=== PATIENT | female | born 1970 | race Caucasian/White ===

== ENCOUNTER 2017-12-13 06:59 | Day surgery (SDC) | payer MEDICARE ==
[~2017-12-13] VITALS: Ht 157.5 cm; Wt 66.4 kg
[2017-12-13] MEDS ORDERED: IOHEXOL 300 MG/ML 50 ML BTL (for RAD DIAG) IT ONE (07:00)
[2017-12-13 07:25] VITALS: BP 154/114; PULSE 86; RESP 20; TEMP 97.9; O2SAT 97
[2017-12-13] MEDS ORDERED: GABA600T PO (07:49)
[2017-12-13] MEDS ORDERED: TIZA4CAP3 PO (07:49)
[2017-12-13] MEDS ORDERED: BENA25CA4 PO (07:50)
[2017-12-13 08:09] LABS: AUTOMATED NEUTROPHIL # 5.6 TH/MM3 (1.8-7.7); BASOPHIL # 0.1 TH/MM3 (0-0.2); BASOPHIL % 1.1 % (0.0-2.0); EOSINOPHIL # 0.2 TH/MM3 (0-0.4); EOSINOPHIL % 1.7 % (0.0-4.0); HEMATOCRIT 44.1 % (35.0-46.0); HEMOGLOBIN 15.2 GM/DL (11.6-15.3); LYMPH % 33.6 % (9.0-44.0); LYMPHOCYTE # 3.4 TH/MM3 (1.0-4.8); MEAN CELL VOLUME 83.1 FL (80.0-100.0); MEAN CORPUSCULAR HEMOGLOBIN 28.6 PG (27.0-34.0); MEAN CORPUSCULAR HGB CONC 34.4 % (32.0-36.0); MEAN PLATELET VOLUME 7.7 FL (7.0-11.0); MONO % 8.6 % (0.0-8.0); MONOCYTE # 0.9 TH/MM3 (0-0.9); PLATELET COUNT 487 TH/MM3 (150-450); RED BLOOD COUNT 5.31 MIL/MM3 (4.00-5.30); RED CELL DISTRIBUTION WIDTH 20.4 % (11.6-17.2); WHITE BLOOD COUNT 10.1 TH/MM3 (4.0-11.0)
[2017-12-13] MEDS ORDERED: DIAZEPAM 5 MG TAB PO SCH (08:15)
[2017-12-13 08:16] LABS: BICARBONATE 22.8 MEQ/L (21.0-32.0); CALCIUM 9.5 MG/DL (8.5-10.1); CREATININE 0.94 MG/DL (0.50-1.00)
[2017-12-13 08:47] LABS: OVALOCYTES 1+ (NORMAL)
[2017-12-13] MEDS ORDERED: LACTATED RINGER'S 1000 ML INJ 1,000 ML IV SCH (09:00)
--- NOTE | 2017-12-13 09:13 | PD.RAD ---
Post Procedure Progress Note Pre Procedure Diagnosis: (1) Neck pain Post Procedure Diagnosis: (1) Neck pain Procedure Date: Dec 13, 2017 Supervising Radiologist: Donn Lacey Proceduralist/Assist: Flores Bazan, RT(R)(CV), RT Robbi(R) Anesthesia: Local Plan of Activity Patient to Unit: [facility] Patient Condition: Good See PACS Report for procedural detail/treatment Spinal Procedure L2-L3 Fluid Description: Donn Sal MD Dec 13, 2017 09:13
[2017-12-13] MEDS ORDERED: oxyCODONE/ACETAMINOPHEN 5 MG/325 MG TAB PO PRN (09:15)
[2017-12-13] MEDS ORDERED: ACETAMINOPHEN 325 MG TAB PO PRN (09:15)
[2017-12-13] MEDS ORDERED: ONDANSETRON HCL 4 MG/2 ML VIAL IV PUSH PRN (09:15)
--- NOTE | 2017-12-13 09:40 | RADRPT ---
EXAM DATE/TIME: 12/13/2017 08:40 [facility] COMPARISON: No previous studies available for comparison. INDICATIONS : Patient with history of cervical radiculopathy in need of myelogram. MEDICAL HISTORY : Right shoulder arthritis, Chronic low back pain, Left leg nerve damage SURGICAL HISTORY : Spinal cord stimulator, Spinal fusion, Spinal discectomy ENCOUNTER: Initial ACUITY: 4-6 months PAIN SCORE: 7/10 LOCATION: Right arm LUMBAR PUNCTURE TIME: 0902 hours FLUORO TIME: 1.5 minutes IMAGE SERIES: 4 CONTRAST: 13 cc Omnipaque (iohexol) 300 ACCESS LEVEL: L2-3 PROCEDURE : 1. Fluoroscopic guided lumbar puncture. 2. Instillation of intrathecal contrast. 3. Cervical myelogram. The risks, benefits and alternatives to the procedure were explained and verbal and written consent w as obtained. The site was prepped in sterile fashion. Full sterile technique was used, including ca p, mask, sterile gloves and gown and a large sterile sheet. Hand hygiene and 2% chlorhexidine and/or betadine/alcohol prep was utilized per protocol for cutaneous antisepsis. The skin and subcutaneous tissues were infiltrated with local anesthetic solution. With fluoroscopic guidance the lumbar thecal sac was punctured at level above and a diagnostic quanti ty of contrast is present in the subarachnoid space. Under fluoroscopic guidance contrast was moved t o the cervical region. The patient tolerated procedure well and there were no complications. CT scan is to be performed for further evaluation. The images demonstrate no spinal canal stenosis. Nerve root exit zones are clear. CONCLUSION: Uncomplicated cervical myelogram as above. CT scan is to be performed for further evaluation. Donn Lacey MD on December 13, 2017 at 9:36 Board Certified Radiologist. This report was verified electronically.
[2017-12-13 09:50] VITALS: BP 131/101; PULSE 76; RESP 20; TEMP 97.4; O2SAT 97
--- NOTE | 2017-12-13 10:48 | RADRPT ---
EXAM DATE/TIME: 12/13/2017 09:35 [facility] COMPARISON: No previous studies available for comparison. INDICATIONS : Post myelogram. Neck pain. Numbness in 2nd and 3rd digits on right hand. RADIATION DOSE: 21.30 CTDIvol (mGy) CT of thecervical spine was performed post myelogram. MEDICAL HISTORY : None SURGICAL HISTORY : Fusion, lumbar. Spinal stimulator. ENCOUNTER: Initial ACUITY: 1 month PAIN SCALE: 6/10 LOCATION: neck TECHNIQUE: Volumetric scanning of the cervical spine was performed. Multiplanar reconstructions in the sagittal, coronal and oblique axial planes were performed. Using automated exposure control and adjustment o f the mA and/or kV according to patient size, radiation dose was kept as low as reasonably achievable to obtain optimal diagnostic quality images. DICOM format image data is available electronically f or review and comparison. FINDINGS: There is excellent contrast opacification of the cervical subarachnoid spaces following prior injecti on of myelographic contrast. The cervical spine alignment is normal. There is no evidence of fracture or destructive change. No selina ny canal or foraminal compromise is identified. There is a broad undulating dorsal disc protrusion at C6-7 producing severe asymmetrically right-side d lateral recess and foraminal effacement with mild compromise on the contralateral left side. Mild d egree of concentric canal stenosis. Other interspace levels are unremarkable CONCLUSION: Moderate broad undulating dorsal disc protrusion at C6-7 as described above. Other levels are satisfa ctory in appearance. Festus Arango MD on December 13, 2017 at 10:41 Board Certified Radiologist. This report was verified electronically.
[2017-12-13 13:00] VITALS: BP 138/98; PULSE 76; RESP 20; TEMP 97.4; O2SAT 97
== END 2017-12-13 13:00 | disposition home or self-care (01) ==
LOC: HROP 06:59 → EDSEX 07:00 → HRIP 07:00 → HROP 13:00
PROVIDERS: ATTEND Orthopaedic Surgery Orthopaedic Surgery of the Spine
DX: M54.12 Radiculopathy, cervical region (principal); R20.0 Anesthesia of skin; M54.2 Cervicalgia; Z01.818 Encounter for other preprocedural examination
CPT/HCPCS: 62302; 72125; 80048; 85025; 85610; 85730; J7120; Q9967

== ENCOUNTER 2017-12-22 05:29 | Observation (INO) | payer MEDICARE ==
[~2017-12-22] VITALS: Ht 157.5 cm; Wt 70.1 kg
[~2017-12-22 05:29] MED LIST: BENA25CA4 PO; FERR325T98 PO; GABA600T PO; TIZA4CAP3 PO
[2017-12-22] MEDS ORDERED: SODIUM CHLORID 0.9% 500 ML IV PRN (06:00)
[2017-12-22] MEDS ORDERED: ceFAZolin 2 GM PREMIX 50 ML IV SCH (06:00)
[2017-12-22] MEDS ORDERED: LACTATED RINGER'S 1000 ML IV PRN (06:00)
[2017-12-22] MEDS ORDERED: INSULIN HUMAN REGULAR 1,000 UNITS/10 ML VIAL SQ PRN (06:00)
[2017-12-22] MEDS ORDERED: POVIDONE IODINE 5% (ANTISEPSIS KIT) 4 APPLICATIONS EACH NARE PRN (06:00)
[2017-12-22] MEDS ORDERED: VANCOMYCIN 1000 MG/NS 250 ML (for <70 kg) IV SCH ×2 (06:00)
[2017-12-22] MEDS ORDERED: CHLORHEXIDINE GLUCONATE 4% SOLN 120 ML BTL TOPICAL SCH (06:00)
[2017-12-22] MEDS ORDERED: METOPROLOL TARTRATE 25 MG TAB PO PRN (06:00)
[2017-12-22] MEDS ORDERED: CHLORHEXIDINE GLUCONATE 2 % 1 PACK (2 CLOTHS) TOPICAL PRN (06:00)
[2017-12-22] MEDS ORDERED: SODIUM CHLORIDE 0.9% 20 ML VIAL ONE (07:01)
[2017-12-22] MEDS ORDERED: BUPIVACAINE/EPINEPHRINE 0.25% 50 ML VIAL ONE (07:01)
[2017-12-22] MEDS ORDERED: GENTAMICIN SULFATE 80 MG/2 ML VIAL ONE (07:02)
[2017-12-22] MEDS ORDERED: BETAMETHASONE SOD PHOS/ACETATE SUSP 30 MG/5 ML VIAL ONE (09:42)
[2017-12-22] MEDS ORDERED: ACETAMINOPHEN 1000 MG/100 ML 100 ML IV ONE (10:07)
[2017-12-22] MEDS ORDERED: KETAMINE HCL 500 MG/5 ML VIAL ONE (10:07)
[2017-12-22] MEDS ORDERED: PROPOFOL 500 MG/50 ML INJ 50 ML ONE (10:07)
[2017-12-22] MEDS ORDERED: PROPOFOL 500 MG/50 ML INJ 100 ML ONE (10:08)
[2017-12-22] MEDS ORDERED: ONDANSETRON HCL 4 MG/2 ML VIAL IV ONE (12:00)
[2017-12-22] MEDS ORDERED: PHENYLEPH/NS 1000 MCG/10 ML SYR IV ONE (12:00)
[2017-12-22] MEDS ORDERED: PROPOFOL 200 MG/20 ML AMP IV ONE (12:00)
[2017-12-22] MEDS ORDERED: SUCCINYLCHOLINE CHLORIDE 200 MG/10 ML VIAL IV ONE (12:00)
[2017-12-22] MEDS ORDERED: DEXAMETHASONE SOD PHOS 4 MG/ML VIAL IV ONE (12:00)
[2017-12-22] MEDS ORDERED: SODIUM CHLORIDE 0.9% 20 ML VIAL IV ONE (12:00)
[2017-12-22] MEDS ORDERED: NORMOSOL R INJ 1,000 ML IV ONE (12:00)
[2017-12-22] MEDS ORDERED: ePHEDrine/NS 25 MG/5 ML SYRINGE IV ONE (12:00)
[2017-12-22] MEDS: LACTATED RINGER'S 1000 ML INJ 1,000 ML IV SCH (13:28)
[2017-12-22] MEDS ORDERED: MORPHINE SULFATE 4 MG/ML INJ IV PUSH PRN (13:30)
[2017-12-22] MEDS ORDERED: ACETAMINOPHEN/HYDROcodone 325 MG/7.5 MG TAB PO PRN (13:30)
[2017-12-22] MEDS ORDERED: BISACODYL 10 MG SUPP RECTAL PRN (13:30)
[2017-12-22] MEDS ORDERED: Post-op Orders (for Pharmacy) XX ONE (13:30)
[2017-12-22] MEDS ORDERED: ONDANSETRON HCL 4 MG/2 ML VIAL IV PUSH PRN (13:30)
--- NOTE | 2017-12-22 13:34 | PD.OP ---
cc: Jose Ashley. Operative Report Date of Surgery: Dec 22, 2017 Preoperative Diagnosis: Herniated nucleus pulposus C6 7, right, extruded. Right cervical radiculopathy. Adhesive capsulitis, right shoulder Postoperative Diagnosis: Same Procedure: Manipulation of right shoulder under anesthesia. Anterior discectomy with decompression and bilateral foraminotomies with resection herniated nucleus pulposus, C6 7. Total disc replacement, C6 7 Anesthesia: Gen. Surgeon: Jose Ashley Loft Patternmaker(s): REAGAN Finley Operation and Findings: EBL: 50 cc INDICATIONS: Patient is a 47-year-old female with severe right arm pain and weakness. Studies shows evidence of a large extruded disc herniation to the right at C6 7. She manifests with a hard C7 radiculopathy. The patient and so painful she developed an adhesive capsulitis right shoulder. She presents for surgical treatment. NOTE: Jodi Finley PA-C was present for the entire surgical procedure as my certified first assistant. In my medical opinion her skill and care was necessary for proper management of this patient PROCEDURE: The patient was brought to the operating room and anesthetized in the supine position. This patient was positioned supine on the radiolucent table. All pressure points were protected in the anterior cervical spine and iliac crest was scrubbed with alcohol followed by Hibiclens followed by ChloraPrep. A timeout was done and antibiotics were given within 1 hour time window. Lateral radiographic images were used identifying the proper level. A right anterior incision was made in line with skin creases. The platysma was opened in line with the incision. Deep dissection continued in the interval between the carotid sheath and the esophagus. The longus Shruthi muscles were lifted on both sides and retractors were positioned allowing good exposure. Lateral radiographic images were used to identify the proper level. [place] style interosseous pins were placed at C6 and C7 allowing exposure to that level. The microscope was rolled into the field. A total discectomy was accomplished and posterior osteophytes were removed. Very carefully, fluoroscopy was used in the AP and lateral planes to ensure that the pins were at midline at that the pins were parallel to the endplates at that level. Using the LDR system, trials were used to gauge the width and the depth of the intended implant. It was elected to proceed forward with 17 mm wide, 15 mm deep and 5 mm thick total disc replacement. A trial was utilized. Alignment and position was very satisfactory. The endplates were prepared very carefully. On the back table the total disc replacement was opened. It was then placed in proper orientation and alignment. Slight adjustments were made. We then compressed over the disc replacement and intraoperative x-rays were obtained after the [place] pins were removed. Alignment and position was felt be very satisfactory. No complication was appreciated. The wound was irrigated copiously. Deep retractors were removed. There was no bleeding that was encountered. The platysma was closed. Subcutaneous tissues approximated with interrupted 3-0 Vicryl suture, subcutaneous tissue 3-0 Vicryl suture and skin with running intradermal 4-0 Vicryl followed by Dermabond and a sterile dressing. FINDINGS: There was evidence of a very large extruded disc herniation to the right extending out the foramen. Multiple large fragments of disc were removed. Afterwards, there was no compression on the exiting nerve root. There is mild discoloration the nerve root consistent with hyperemia. No complication was appreciated. We did not remove the posterior longitudinal ligament Jose Ashley MD Dec 22, 2017 13:34
[2017-12-22] MEDS ORDERED: HYDR-3580 PO (13:35)
--- NOTE | 2017-12-22 13:39 | HHI.DS ---
Discharge Summary Admission Date Dec 22, 2017 at 13:30 Discharge Date: Dec 23, 2017 Admitting Diagnosis Herniated nucleus pulposus C6 7 Diagnosis: (1) Herniated cervical disc without myelopathy ICD Codes: M50.20 - Other cervical disc displacement, unspecified cervical region Procedures Anterior cervical discectomy C6 7 with total disc replacement Brief History This is a 47 year old female patient who presents with significant right arm pain and weakness related to large extruded disc herniation C6 7 to the right. The patient presents for surgical treatment because of neurologic compromise. She is felt to be a good candidate for total disc replacement because of her overall cervical anatomy Hospital Course She did well. Surgical treatment date of admission. Transferred to recovery room and then to floor. First day after surgery having no significant pain in the arm. Still some signs of C7 radiculopathy. Pt Condition on Discharge: Good Discharge Disposition: Discharge Home Discharge Instructions Diet Instructions: As Tolerated, No Restrictions Additional Diet Instructions: Brace full-time for 2 weeks Activities You Can Perform: See Additionl Instruction (Keep incision dry for 5 days.) Additional Activity Instruc.: cervical collar time buyer Jose Ashley MD Dec 22, 2017 13:39
[2017-12-22] MEDS ORDERED: MIDAZOLAM HCL 2 MG/2 ML VIAL ONE (14:03)
[2017-12-22] MEDS ORDERED: *morphine SULFATE 10 MG/ML PERIprocedure ONLY ONE ×2 (14:04→14:27)
[2017-12-22] MEDS ORDERED: *ONDANSETRON 4 MG VIAL PERIprocedural Use ONLY ONE (14:05)
[2017-12-22] MEDS ORDERED: *diphenhydrAMINE HCL 50 MG/ML VIAL PERIprocedural Use ONLY ONE (15:23)
[2017-12-22] MEDS: ACETAMINOPHEN/HYDROcodone 325 MG/7.5 MG TAB PO PRN ×2 (16:52→23:11)
--- NOTE | 2017-12-22 16:53 | RADRPT ---
EXAM DATE/TIME: 12/22/2017 13:11 [facility] COMPARISON: No previous studies available for comparison. INDICATIONS : C6-7 Anterior cervical fusion. MEDICAL HISTORY : None. SURGICAL HISTORY : Fusion, lumbar. Spinal stimulator ENCOUNTER: Initial ACUITY: 1 day PAIN SCORE: Non-responsive. LOCATION: Cervical spine. FINDINGS: 2 fluoroscopic images of the lower cervical spine demonstrate cervical disc replacement hardware at C 6-7. Hardware appears well-positioned. Sagittal alignment is maintained. The vertebral bodies are int act. CONCLUSION: 1. Status post C6-7 disc replacement. No acute fracture with intact sagittal alignment. Iam Carter MD on December 22, 2017 at 16:49 Board Certified Radiologist. This report was verified electronically.
[2017-12-22 17:00] VITALS: BP 123/80; PULSE 93; RESP 18; TEMP 97.6; O2SAT 99
[2017-12-22 19:50] VITALS: BP 122/68; PULSE 91; RESP 18; TEMP 96.5; O2SAT 94
[2017-12-22] MEDS: GABAPENTIN 300 MG CAP PO SCH (20:31)
[2017-12-22] MEDS ORDERED: DO NOT ADM ANY ANTICOAGULANT DRUGS PRN (21:45)
--- NOTE | 2017-12-22 22:49 | HHI.DCPOC ---
Discharge Care Plan Diagnosis: (1) Herniated cervical disc without myelopathy (2) Adhesive capsulitis of right shoulder Your Health Problems Are: Difficulty with ADL Incision/Drains Swelling Goals to Promote Your Health * To prevent worsening of your condition and complications * To maintain your health at the optimal level Directions to Meet Your Goals Take your medications as prescribed Follow your dietary instruction Follow activity as directed Keep your appointments as scheduled Take your immunizations and boosters as scheduled If your symptoms worsen call your PCP, if no PCP go to Urgent Care Center or Emergency Room Smoking is Dangerous to Your Health. Avoid second hand smoke Call the 24-hour hour crisis hotline for domestic abuse at Wendi Horvath Dec 22, 2017 22:49
[2017-12-22 23:25] VITALS: BP 124/76; PULSE 99; RESP 17; TEMP 97.5; O2SAT 94
[2017-12-23 00:55] VITALS: O2SAT 98
[2017-12-23] MEDS: LACTATED RINGER'S 1000 ML INJ 1,000 ML IV SCH (01:58)
[2017-12-23 04:35] VITALS: BP 109/65; PULSE 83; RESP 17; TEMP 98.1; O2SAT 95
--- NOTE | 2017-12-23 07:52 | PD.ORT.PN ---
Subjective Subjective Remarks Patient much more comfortable than before surgery. Still has tingling into the right hand. No significant pain like she had before surgery. Was concerned about her cervical spine after vomiting episode last night Objective Vitals Vital Signs Date Time Temp Pulse Resp B/P (MAP) Pulse Ox O2 Delivery O2 Flow Rate FiO2 12/23/17 04:35 98.1 83 17 109/65 (80) 95 12/23/17 00:55 98 21 12/22/17 23:25 97.5 99 17 124/76 (92) 94 12/22/17 19:50 96.5 91 18 122/68 (86) 94 12/22/17 17:00 97.6 93 18 123/80 (94) 99 12/22/17 16:00 88 16 123/67 (85) 97 Room Air 12/22/17 15:30 92 16 132/81 (98) 98 Room Air 12/22/17 15:00 92 16 113/71 (85) 96 Room Air 12/22/17 14:45 84 16 113/70 (84) 96 Room Air 12/22/17 14:30 80 16 119/76 (90) 98 Room Air 12/22/17 14:15 84 16 118/68 (85) 99 Room Air 12/22/17 14:00 97.8 92 16 109/68 (82) 97 I/O 12/22/17 12/22/17 12/22/17 12/23/17 12/23/17 12/23/17 07:00 15:00 23:00 07:00 15:00 23:00 Intake Total 1450 ml 240 ml 520 ml Output Total 50 ml 100 ml Balance 1400 ml 140 ml 520 ml Intake Oral 240 ml 520 ml IV Total 1450 ml Output Urine Total 100 ml Estimated Blood Loss 50 ml # Voids 2 3 # Bowel Movements 0 0 Procedures Anterior cervical discectomy C6 7 with total disc replacement Objective Remarks Motor examination right triceps, 5-/5 Loss of sensation right C7 distribution as before surgery. Dressing dry. No shoulder pain or radiating pain Assessment & Plan Assessment and Plan HNP C6 7, right, extruded. Right C7 radiculopathy, severe. Surgery: Anterior discectomy C6 7, TDR. PLAN: Cervical brace for 2 weeks. [place] for pain. Discharge to home. Dry dressing change.. No need for home healthcare home PT Follow-up in 2 weeks Jose Ashley MD Dec 23, 2017 07:52
[2017-12-23 08:00] VITALS: BP 123/81; PULSE 76; RESP 18; TEMP 96.9; O2SAT 95
[2017-12-23] MEDS ORDERED: DOCUSATE SODIUM 100 MG CAP PO SCH (09:00)
[2017-12-23] MEDS ORDERED: diphenhydrAMINE HCL 25 MG CAP PO SCH (09:00)
[2017-12-23] MEDS ORDERED: MULTIVITAMINS/MINERALS THERAPEUTIC TAB PO SCH (09:00)
[2017-12-23] MEDS ORDERED: PNEUMOCOCCAL POLYVALENT INJ 25 MCG/0.5 ML SYR IM ONE (10:00)
[2017-12-23] MEDS: GABAPENTIN 300 MG CAP PO SCH (10:36)
[2017-12-23] MEDS: ACETAMINOPHEN/HYDROcodone 325 MG/7.5 MG TAB PO PRN (10:37)
== END 2017-12-23 12:39 | disposition home or self-care (01) ==
LOC: HSDC 05:29 → EDSTATUS 07:30 → HSDI 13:30 → N06B 17:04
PROVIDERS: ADMIT Orthopaedic Surgery Orthopaedic Surgery of the Spine; ATTEND Orthopaedic Surgery Orthopaedic Surgery of the Spine
DX: M50.123 Cervical disc disorder at C6-C7 level with radiculopathy (principal); M75.01 Adhesive capsulitis of right shoulder; R11.10 Vomiting, unspecified; Z23 Encounter for immunization
CPT/HCPCS: 00600; 01620; 22856; 23700; 63045; 72040; 76000; 90732; 94150; 96365; 96374; 96375; 96376; C1889; G0008; G0378; J0131; J0330; J0690; J0702; J1100; J1200; J1580; J2250; J2270; J2370; J2405; J3010; J3370; J7050; J7120; 90471